=== PATIENT | male | born 1965 | race Caucasian/White ===

== ENCOUNTER → 2019-08-27 16:18 | Outpatient (BNVA) | payer MEDICAID, SELFPAY | PROVIDERS: Family Provider Family Medicine; Visit Provider Family Medicine | DX: E87.6 Hypokalemia (principal); I10 Essential (primary) hypertension; R10.31 Right lower quadrant pain; J44.9 Chronic obstructive pulmonary disease, unspecified; E04.1 Nontoxic single thyroid nodule | CPT/HCPCS: 80048 ==

== ENCOUNTER → 2019-09-02 12:42 | Outpatient (BNVA) | payer MEDICAID, SELFPAY | PROVIDERS: Family Provider Family Medicine; PCP Family Medicine; Visit Provider Otolaryngology | DX: E04.1 Nontoxic single thyroid nodule (principal); R13.10 Dysphagia, unspecified; F17.210 Nicotine dependence, cigarettes, uncomplicated | CPT/HCPCS: 99214 ==

== ENCOUNTER 2019-09-15 12:54 | Outpatient (CLI) | payer MEDICAID, SELFPAY ==
[2019-09-15] MEDS: iohexol 300 mg/mL 50 mL Btl PO (13:47)
--- NOTE | 2019-09-15 14:30 | CTR_ITS ---
PROCEDURE INFORMATION: Exam: CT Abdomen And Pelvis With Contrast Exam date and time: 09/15/2019 1:30 PM Age: 54 years old Clinical indication: Other: Right groin pain; Prior surgery; Surgery date: 6+ months; Surgery type: Appy, hernia mesh date of surgeries not provided TECHNIQUE: Imaging protocol: Computed tomography of the abdomen and pelvis with intravenous contrast. Total DLP: 1560.63 mGy-cm Radiation optimization: All CT scans at this facility use at least one of these dose optimization techniques: automated exposure control; mA and/or kV adjustment per patient size (includes targeted exams where dose is matched to clinical indication); or iterative reconstruction. Contrast material: OMNI 300; Contrast volume: 95 ml; Contrast route: IV; COMPARISON: CT abdomen pelvis w con* [id number] 07/31/2019 6:47 PM FINDINGS: Liver: Diffuse fatty infiltration of the liver. Gallbladder and bile ducts: Cholelithiasis. The bile ducts are normal. Pancreas: Normal. No ductal dilation. Spleen: Normal. No splenomegaly. Adrenals: Normal. No mass. Kidneys and ureters: Normal. No hydronephrosis. Stomach and bowel: Duodenal diverticulum. Appendix: The appendix is absent. Intraperitoneal space: Unremarkable. No free air. No significant fluid collection. Vasculature: Unremarkable. No abdominal aortic aneurysm. Lymph nodes: Unremarkable. No enlarged lymph nodes. Bladder: Unremarkable as visualized. Reproductive: Unremarkable as visualized. Bones/joints: Unremarkable. No acute fracture. Soft tissues: Unremarkable. CT/CT abdomen pelvis w con* [id number] IMPRESSION: 1. No acute findings in the abdomen or pelvis. 2. Cholelithiasis. 3. Fatty liver. Radiation Dose CTDIVOL = (mGy): DLP = 1560.63 (mGy-cm)
[2019-09-15] MEDS: iohexol 300 mg/mL 100 mL Btl IV (15:00)
== END 2019-09-15 12:55 | disposition home or self-care (01) ==
LOC: RAD 12:57
PROVIDERS: Family Provider Family Medicine; PCP Family Medicine; Visit Provider Surgery
DX: R10.31 Right lower quadrant pain (principal); K80.20 Calculus of gallbladder without cholecystitis without obstruction; K76.0 Fatty (change of) liver, not elsewhere classified
CPT/HCPCS: 74177

== ENCOUNTER → 2019-09-30 10:38 | Outpatient (BNVA) | payer MEDICAID, SELFPAY | PROVIDERS: Family Provider Family Medicine; PCP Family Medicine; Visit Provider Specialist | DX: I99.8 Other disorder of circulatory system (principal); F17.210 Nicotine dependence, cigarettes, uncomplicated; Z86.73 Personal history of transient ischemic attack (TIA), and cerebral infarction without residual deficits | CPT/HCPCS: 99214 ==

== ENCOUNTER → 2019-10-01 09:41 | Outpatient (BNVA) | payer MEDICAID, SELFPAY | PROVIDERS: Family Provider Family Medicine; PCP Family Medicine; Visit Provider Family Medicine | DX: E87.6 Hypokalemia (principal); I10 Essential (primary) hypertension; R10.31 Right lower quadrant pain; B35.1 Tinea unguium; R13.19 Other dysphagia; Z12.11 Encounter for screening for malignant neoplasm of colon; E04.1 Nontoxic single thyroid nodule; R60.0 Localized edema | CPT/HCPCS: 36415; 80048 ==

== ENCOUNTER → 2019-10-07 11:04 | Outpatient (BNVA) | payer MEDICAID, SELFPAY | PROVIDERS: Family Provider Family Medicine; PCP Family Medicine; Visit Provider Otolaryngology | DX: R13.19 Other dysphagia (principal); E04.1 Nontoxic single thyroid nodule; F17.210 Nicotine dependence, cigarettes, uncomplicated | CPT/HCPCS: 99214 ==

== ENCOUNTER 2019-10-09 06:50 | Day surgery (SDC) | payer MEDICAID, SELFPAY ==
[2019-10-08 14:45] VITALS: BMI 34.0
[2019-10-09] VITALS (8 sets, daily range): BP systolic 107–135; BP diastolic 64–104; PULSE 92–126; RESP 18–27; TEMP 36.2–36.9; O2SAT 89–95
[2019-10-09] MEDS: sodium chloride 0.9% 1,000 ML 30 ML IV (07:24)
--- NOTE | 2019-10-09 07:27 | ANES.PREANE2 ---
Pre-Anesthetic Assessment Pre-Anesthetic Assessment: Height/Weight: Height 1.75 m Weight 104.326 kg Temp Pulse Resp BP Pulse Ox 97.3 F L 92 18 133/91 95 10/09/19 07:03 10/09/19 07:03 10/09/19 07:03 10/09/19 07:03 10/09/19 07:03 Preop Diagnosis: Dysphasia Proposed Procedure: Operation Date: 10/09/19 08:20 Proposed Procedures p EGD with biopsy and poss dilation 13326 R13.10(Not Applicable) - Jonathan Hamm MD Last intake: Intake Last Liquid Date 10/09/19 Last Liquid Time 06:00 Last Solid Date 10/08/19 Last Solid Time 19:00 Social: Social History: Tobacco and No alcohol Exam: Pre-Anes Outpt Exam: alert, oriented x 3, clear to auscultation bilaterally and regular rate & rhythm Airway: Submandibular: WNL Cervical ROM: WNL MP: 1 Dentition: Other (very poor dentation) History/ROS: No significant history except as noted Pulmonary: Pulmonary: COPD and ELIAS CV/HEM: CV/HEM: HTN : : None reported Hepatic: Hepatic: None reported GI: GI: GERD (occ) Comments: dysphagia Metabolic: Metabolic: Hyperlipidemia Musc/skel: Musc/skel: Lower Back Pain and OA/DJD Neuropsych: Neuropsych: Anxiety, Depression and TIA (reports 2 episodes) Anesthetic Plan: ASA status: 3 Anesthesia: Anesthesia Evaluation and MAC Risk of > 500 ml blood loss (7ml/kg in children): No Meds/Allergies Current Medications: Current Medications Generic Name Dose Route Start Last Admin Trade Name Freq PRN Reason Stop Dose Admin Sodium Chloride 1,000 mls @ 30 ml s/hr 10/09/19 07:00 10/09/19 07:24 Sodium Chloride 0.9% IV 10/10/19 06:59 30 mls/hr .Q24H ASA Administration PFSH Anesthesia PFSH: Medical History Acute cerebrovascular accident Chest pain at rest COPD, mild Hypertension, essential Lumbar disc disease with radiculopathy Nocturia Seizure Stenosis, cervical spine Thoracic spine pain Thyroid nodule Surgical History H/O circumcision History of appendectomy Hx of inguinal hernia surgery right with mesh 2006 Family History Other Arthritis Diabetes Hypertension Denies family history of Anesthesia complication Bleeding disorder Social History Smoking and tobacco status: current every day smoker cigarettes Packs smoked per day: 2.5 Alcohol intake: former Household members: other Details: room mate Marital status: Single Current occupational status: disabled History of recent travel: No Current gender identity: Male Data Anesthesia Cardiac Studies: No Data to Display
--- NOTE | 2019-10-09 07:35 | W.PM.OPSUD ---
Surgery/Procedure H&P Update DATE OF PROCEDURE: October 09, 2019 DATE H&P PERFORMED: 10/07/19 H&P UPDATE INFORMATION: I have reviewed H&P completed within last 30 days and No changes to prior documentation PREOP DIAGNOSIS: Dysphasia PLANNED PROCEDURE: Operation Date: 10/09/19 08:20 Proposed Procedures p EGD with biopsy and poss dilation 24854 R13.10(Not Applicable) - Jonathan Hamm MD
--- NOTE | 2019-10-09 07:36 | P.OP_ITS ---
Operative Report Date of procedure: October 09, 2019 Pre-op Diagnosis: Dysphagia Post-op diagnosis: same Post-op Findings: Stricture cervical esophagus, distal esophageal erosion, gastric ulcer Procedure Done: EGD with dilation and biopsy of distal esophagus and gastric mucosa Pathology: Distal esophagus, gastric mucosa Surgeon: Jonathan Hamm Anesthesia: MAC Complications: None Findings: Small areas of ulceration gastric mucosa, circumferential erosion distal esophagus measuring less than 1 cm in greatest dimension. Condition: stable Disposition: PACU Procedure: The patient was taken to the operating room and under satisfactory general endotracheal anesthesia the gastroscope was introduced into the post cricoid area. A stricture was encountered. The scope was passed through the stricture the esophagus stomach and duodenum were examined the duodenal mucosa was normal several small ulcers were identified in the gastric mucosa 2 biopsies were taken. The distal esophageal mucosa demonstrated circumferential erosion greatest distance was approximately 1 cm. Biopsies were taken. Using a bougie the patient was dilated to a 57 [place]. Repeat examination revealed no perforation. The patient tolerated the procedure well and was allowed to awaken. He was taken to the recovery room where he was observed during the observation time postoperative care instructions and counseling including detailed written and verbal instructions were given to the patient. Once he met discharge criteria he was discharged in satisfactory and stable condition.
[2019-10-09] MEDS: citric acid-sodium citrate 30 mL UDC PO (07:46)
--- NOTE | 2019-10-09 08:13 | SUR.OPER ---
blood noted on lips when oral airway removed to intubate patient.
--- NOTE | 2019-10-09 08:13 | W.PM.OPSUD ---
Surgery/Procedure H&P Update DATE OF PROCEDURE: October 09, 2019 DATE H&P PERFORMED: 10/07/19 H&P UPDATE INFORMATION: I have reviewed H&P completed within last 30 days and No changes to prior documentation PREOP DIAGNOSIS: Dysphagia PLANNED PROCEDURE: Operation Date: 10/09/19 08:20 Proposed Procedures p EGD with biopsy and poss dilation 25490 R13.10(Not Applicable) - Jonathan Hamm MD
--- NOTE | 2019-10-09 08:29 | SUR.PHASEI ---
3692 PATIENT TO PACU AT THIS TIME. COUGH NOTED. RR UNLABORED. SPO2 95% ON SIMPLE MASK AT 8L.
--- NOTE | 2019-10-09 08:46 | SUR.PHASEI ---
0846 PATIENT CONTINUES TO HAVE A DRY, HACKY COUGH
--- NOTE | 2019-10-09 08:52 | SUR.PHASEI ---
0852 PATIENT CAN'T TOLERATE O2 VIA NC OR SIMPLE MASK.
--- NOTE | 2019-10-09 09:01 | SUR.PHASEI ---
0857 PATIENT TO OPS AT THIS TIME. PATIENT CONTINUE TO COUGH. SPO2 90% ON ROOM AIR. PATIENT NOT TOLERATING A MASK OR O2. DENIES PAIN. A/OX3.
[2019-10-09] MEDS: cetylpyridinium Lozenge 1 EACH MUCOUS MEM (09:21)
== END 2019-10-09 09:45 | disposition home or self-care (01) ==
PROVIDERS: Family Provider Family Medicine; PCP Family Medicine; Visit Provider Otolaryngology
PROC: 0DJ08ZZ Inspection of Upper Intestinal Tract, Via Natural or Artificial Opening Endoscopic (ICD-10-PCS; CPT 43235; principal; 2019-10-09 08:20)
DX: R13.10 Dysphagia, unspecified (principal); J44.9 Chronic obstructive pulmonary disease, unspecified; I10 Essential (primary) hypertension; Z86.73 Personal history of transient ischemic attack (TIA), and cerebral infarction without residual deficits; Z82.49 Family history of ischemic heart disease and other diseases of the circulatory system; Z83.3 Family history of diabetes mellitus; F17.210 Nicotine dependence, cigarettes, uncomplicated; E04.1 Nontoxic single thyroid nodule; E78.5 Hyperlipidemia, unspecified; K21.9 Gastro-esophageal reflux disease without esophagitis; M19.90 Unspecified osteoarthritis, unspecified site
CPT/HCPCS: 43239; 43450; 12345; 88305; J1100; J2001; J2250; J2405; J2704; J3535; J7030

== ENCOUNTER 2019-10-20 10:36 | Outpatient (CLI) | payer MEDICAID, SELFPAY ==
--- NOTE | 2019-10-20 11:00 | US_ITS ---
WS: [id number] THYROID ULTRASOUND REASON FOR EXAM: thyroid nodule TECHNIQUE: Grayscale and Doppler ultrasound examination of the thyroid gland. FINDINGS: RIGHT: Right thyroid gland measures 3.9 cm x 1.2 cm x 1.2 cm. Right thyroid volume equals 2.8 ccm3. Homogene ous. LEFT: Left thyroid gland measures 3.9 cm x 1.6 cm x 1.6 cm. Left thyroid volume equals 5.3 ccm3. In the low er aspects of the left lobe is a complex nodule which partially cystic and solid measures 1.31 x 0.80 x 0.95 cm. This lesion with a complex the is somewhat suspicious and consideration of biopsy is kermit mmended . Thyroid isthmus: 0.5 mm. US/US thyroid [id number] IMPRESSION: A complex nodule in the lower aspects of the left lobe this is well encapsulate d but is complex and consideration of biopsy recommended.
== END 2019-10-20 10:37 | disposition home or self-care (01) ==
LOC: RAD 10:39
PROVIDERS: Family Provider Family Medicine; PCP Family Medicine; Visit Provider Emergency Medicine
DX: E04.1 Nontoxic single thyroid nodule (principal)
CPT/HCPCS: 76536

== ENCOUNTER → 2019-10-24 09:05 | Outpatient (BNVA) | payer MEDICAID, SELFPAY | PROVIDERS: Family Provider Family Medicine; PCP Family Medicine; Visit Provider Otolaryngology | DX: R13.19 Other dysphagia (principal); E04.1 Nontoxic single thyroid nodule; F17.210 Nicotine dependence, cigarettes, uncomplicated | CPT/HCPCS: 99214 ==

== ENCOUNTER 2019-11-07 09:19 | Outpatient (CLI) | payer MEDICAID, SELFPAY ==
--- NOTE | 2019-11-07 10:00 | US_ITS ---
WS: [id number] INDICATION: Thyroid FNA TECHNIQUE: Ultrasound-guided thyroid nodule FNA FINDINGS: The procedure including risks benefits, locations were discussed with the patient who agree d to proceed. Using sterile technique patient was prepped and draped in usual sterile fashion. A time out was performed. After 1% lidocaine using ultrasound guidance 3 25-gauge passes were made into the complex cystic and solid left thyroid nodule with active aspiration. Pathology was present for slide preparation. No complications. Nodule decrease in size by approximately 30% with fluid aspiration. US/US biopsy thyroid [id number] IMPRESSION: Uncomplicated ultrasound-guided thyroid nodule FNA
== END 2019-11-07 09:20 | disposition home or self-care (01) ==
LOC: RAD 09:21
PROVIDERS: Family Provider Family Medicine; PCP Family Medicine; Visit Provider Otolaryngology
DX: E04.1 Nontoxic single thyroid nodule (principal)
CPT/HCPCS: 10005; 88173; 88305; J2001

== ENCOUNTER → 2019-11-11 13:01 | Outpatient (BNVA) | payer MEDICAID, SELFPAY | PROVIDERS: Family Provider Family Medicine; PCP Family Medicine; Visit Provider Otolaryngology | DX: R13.19 Other dysphagia (principal); E04.1 Nontoxic single thyroid nodule; F17.210 Nicotine dependence, cigarettes, uncomplicated | CPT/HCPCS: 99213; 99214 ==

== ENCOUNTER 2020-03-16 14:46 | Outpatient (CLI) | payer MEDICAID, SELFPAY ==
--- NOTE | 2020-03-16 15:00 | USCV_ITS ---
Clolin Jaramillo Age: 54 Gender: M : 1965 Exam Date: 03/16/2020 14:58 Ordering Phys: Apolinar Soliz DPM Technologist: Ginny Hammond Exam Location: [facility] – [place] Indication: PAD HISTORY: PT HAS SORE PAINFUL FEET AND LEGS PROCEDURES: Venous duplex imaging was performed in bilateral lower extremities. Bilaterally, the common femoral, superficial femoral, profunda femoral, popliteal, posterior tibial, greater saphenous veins, and the peroneal trunk were identified and interrogated in the standard fashion. These veins were found to be easily compressible with spontaneous blood flow. No evidence of insufficiency or thrombus noted. Serial compression, augmentation maneuvers, and spectral Doppler flow evaluation were performed. FINDINGS: No DVT seen in any vessel examined CONCLUSIONS No evidence of DVT in the above-mentioned identifiable veins. Dr Boris Stokes MD [facility] (Electronically Signed) Final Date: 18 March 2020 08:45 S
== END 2020-03-16 14:47 | disposition home or self-care (01) ==
LOC: RAD 14:49
PROVIDERS: Family Provider Family Medicine; PCP Family Medicine; Visit Provider Podiatrist Foot & Ankle Surgery
DX: I73.9 Peripheral vascular disease, unspecified (principal)
CPT/HCPCS: 93970

== ENCOUNTER 2020-03-18 14:58 | Outpatient (CLI) | payer MEDICAID, SELFPAY ==
--- NOTE | 2020-03-18 15:00 | USCV_ITS ---
Collin Jaramillo Age: 54 Gender: M : 1965 Exam Date: 03/18/2020 14:48 Ordering Phys: Apolinar Soliz DPM Technologist: Exam [place] [facility] [place] Indication: Claudication RIGHT LEFT Brachial 149.00 mmHg Brachial 130.00 mmHg Pressure (mmHg) Waveform Pressure (mmHg) Waveform 135.00 BACK GRINDER 140.00 140.00 DPA 137.00 0.94 Ankle/Brachial Index 0.94 135.00 Pre-Exercise Toe Pressure 131.00 0.91 Pre-Exercise Toe/Brachial Index 0.88 FINDINGS Borderline resting ABIs bilaterally Normal resting TBI's bilaterally Normal segmental pressures CONCLUSIONS No significant arterial obstruction, based on the above findings. Dr Boris Stokes MD [facility] (Electronically Signed) Final Date: 18 March 2020 17:32 S
== END 2020-03-18 14:59 | disposition home or self-care (01) ==
LOC: RAD 15:00
PROVIDERS: Family Provider Family Medicine; PCP Family Medicine; Visit Provider Podiatrist Foot & Ankle Surgery
DX: I73.9 Peripheral vascular disease, unspecified (principal)
CPT/HCPCS: 93922

== ENCOUNTER → 2020-04-27 16:06 | Outpatient (BNVA) | payer MEDICAID, SELFPAY | PROVIDERS: Family Provider Family Medicine; PCP Family Medicine; Visit Provider Nurse Practitioner Family | DX: J30.2 Other seasonal allergic rhinitis (principal); Z20.828 Contact with and (suspected) exposure to other viral communicable diseases | CPT/HCPCS: 87635 ==

== ENCOUNTER → 2020-07-26 16:44 | Outpatient (BNVA) | payer MEDICAID, SELFPAY | PROVIDERS: Family Provider Family Medicine; PCP Family Medicine; Visit Provider Family Medicine | DX: Z20.828 Contact with and (suspected) exposure to other viral communicable diseases (principal); I10 Essential (primary) hypertension; J44.9 Chronic obstructive pulmonary disease, unspecified; Z86.73 Personal history of transient ischemic attack (TIA), and cerebral infarction without residual deficits; K21.9 Gastro-esophageal reflux disease without esophagitis; J06.9 Acute upper respiratory infection, unspecified; Z12.11 Encounter for screening for malignant neoplasm of colon; R13.19 Other dysphagia | CPT/HCPCS: 80048; 87635 ==

== ENCOUNTER → 2021-03-10 09:25 | Outpatient (BNVA) | payer MEDICAID, SELFPAY | PROVIDERS: PCP Family Medicine; Visit Provider Family Medicine | DX: I10 Essential (primary) hypertension (principal); J44.9 Chronic obstructive pulmonary disease, unspecified; Z86.73 Personal history of transient ischemic attack (TIA), and cerebral infarction without residual deficits; J30.9 Allergic rhinitis, unspecified; K21.9 Gastro-esophageal reflux disease without esophagitis; E03.9 Hypothyroidism, unspecified | CPT/HCPCS: 80053; 80061; 83735; 84443; 85025 ==

== ENCOUNTER 2021-08-17 10:10 | Outpatient (CLI) | payer MEDICAID, SELFPAY ==
--- NOTE | 2021-08-17 10:15 | USCV_ITS ---
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 Dr Boris Stokes MD [facility] (Electronically Signed) Final Date: 17 August 2021 19:39 S
== END 2021-08-17 10:11 | disposition home or self-care (01) ==
PROVIDERS: PCP Family Medicine; Visit Provider Podiatrist Foot & Ankle Surgery
DX: R09.89 Other specified symptoms and signs involving the circulatory and respiratory systems (principal)
CPT/HCPCS: 93923

== ENCOUNTER → 2021-09-01 11:04 | Outpatient (BNVA) | payer MEDICAID, SELFPAY | PROVIDERS: PCP Family Medicine; Visit Provider Emergency Medicine | DX: Z20.822 Contact with and (suspected) exposure to COVID-19 (principal) | CPT/HCPCS: 87635 ==

== ENCOUNTER → 2021-10-11 11:22 | Outpatient (BNVA) | payer MEDICAID, SELFPAY | PROVIDERS: PCP Family Medicine; Visit Provider Family Medicine | DX: M54.2 Cervicalgia (principal); M54.9 Dorsalgia, unspecified; G89.29 Other chronic pain | CPT/HCPCS: 72040; 72100 ==

== ENCOUNTER → 2021-12-01 09:19 | Outpatient (BNVA) | payer MEDICAID, SELFPAY | PROVIDERS: PCP Family Medicine; Visit Provider Podiatrist Foot & Ankle Surgery | DX: L60.0 Ingrowing nail (principal); L60.3 Nail dystrophy; Z98.890 Other specified postprocedural states; F17.210 Nicotine dependence, cigarettes, uncomplicated | CPT/HCPCS: 99213 ==

== ENCOUNTER → 2022-04-10 10:08 | Outpatient (BNVA) | payer MEDICAID, SELFPAY | PROVIDERS: PCP Family Medicine; Visit Provider Family Medicine | DX: K21.9 Gastro-esophageal reflux disease without esophagitis (principal); I10 Essential (primary) hypertension; J44.9 Chronic obstructive pulmonary disease, unspecified; J30.9 Allergic rhinitis, unspecified; J30.1 Allergic rhinitis due to pollen; E87.6 Hypokalemia; Z13.220 Encounter for screening for lipoid disorders; Z13.6 Encounter for screening for cardiovascular disorders; Z86.73 Personal history of transient ischemic attack (TIA), and cerebral infarction without residual deficits | CPT/HCPCS: 80053; 80061 ==

== ENCOUNTER → 2022-04-13 08:31 | Outpatient (BNVA) | payer MEDICAID, SELFPAY | PROVIDERS: PCP Family Medicine; Visit Provider Podiatrist Foot & Ankle Surgery | DX: L60.3 Nail dystrophy (principal) | CPT/HCPCS: 99213 ==

== ENCOUNTER 2023-01-14 13:29 | Emergency (ER) | payer MEDICAID, SELFPAY ==
--- NOTE | 2023-01-14 13:30 | ECG_ITS ---
[facility] Test Date: 2023-01-14 Pat Name: Collin Jaramillo Department: Room: Gender: Male Head Of Operation And Logistics: : 1965 Requested By: Abdullahi Maxwell Order Number: [id number] Toni MD: Gallito Steward M.D. Measurements Intervals [place] Rate: 109 P: 62 OK: 140 QRS: 79 QRSD: 85 T: 78 QT: 294 QTc: 397 Interpretive Statements SINUS TACHYCARDIA Compared to ECG 07/10/2019 14:13:42 Sinus rhythm no longer present Electronically Signed On 01-15-2023 23:32:18 CDT by Gallito Steward M.D. [id number]
--- NOTE | 2023-01-14 13:31 | XRR_ITS ---
PROCEDURE INFORMATION: Exam: XR Chest Exam date and time: 01/14/2023 1:58 PM Age: 57 years old Clinical indication: Shortness of breath; Additional info: SOB, sent from clinic to er for low oxygen TECHNIQUE: Imaging protocol: Radiologic exam of the chest. Views: 1 view. COMPARISON: CR XR chest 1V [id number] 07/10/2019 2:04 PM FINDINGS: Lungs: Unremarkable. No consolidation. Pleural spaces: Unremarkable. No pleural effusion. No pneumothorax. Heart/Mediastinum: Unremarkable. No cardiomegaly. Bones/joints: Unremarkable for age. XR/XR chest 1V portable [id number] IMPRESSION: Negative chest exam.
[2023-01-14 13:41] VITALS: BP 136/73; PULSE 116; RESP 22; TEMP 37.1; O2SAT 95; BMI 33.6
[2023-01-14 14:53] LABS: Basophils % 0.8 %; Hematocrit 41.9 % (42.0-52.0); Hemoglobin 14.1 g/dL (11.7-16.6); Lymphocytes # 0.5 10^3/uL (0.8-4.8); Lymphocytes % 13.3 %; Mean Corpuscular HGB Conc 33.7 g/dL (30.0-36.0); Mean Corpuscular Hemoglobin 29.9 pg (28.0-34.0); Mean Corpuscular Volume 88.8 fl (80-94); Mean Platelet Volume 8.5 fL (7.4-10.4); Monocytes # 0.4 10^3/uL (0.2-0.9); Monocytes % 9.7 %; Neutrophils # 2.73 10^3/uL (1.8-7.7); Neutrophils % 75.6 %; Nucleated Red Blood Cells % 0 %; Platelet Count 139 10^3/cmm (130-400); Red Blood Count 4.72 10^6/uL (4.1-5.3); Red Cell Distribution Width 13.8 % (12.1-15.1); White Blood Count 3.6 10^3/uL (4.0-10.0)
[2023-01-14 15:04] LABS: INR 1.07 (0.8-1.2)
--- NOTE | 2023-01-14 15:12 | ED_ITS ---
HPI - SOB/Dyspnea General: Chief Complaint: Shortness of Breath/Dyspnea Stated Complaint: clinic sent for low O2, sob Time Seen by Provider: 01/14/23 14:07 Source: patient Mode of arrival: ambulatory Limitations: no limitations History of Present Illness: HPI Narrative: 57-year-old male has a history of COPD states over the last 2 days he is had a lot of sinus pressure a lot of nasal congestion he states he had a slight cough today as he has had increased wheezing and shortness of breath using albuterol inhaler states he has had minimal improvement with his wheezing. He denies any fevers denies any pain denies any worsening improving factors. Associated symptoms: Deny abdominal pain, chest pain, fever(s), nausea or vomiting Review of Systems Const: Denies: fever(s), chills, body aches or change in appetite Eyes: Denies: eye discomfort ENMT: Reports: nasal congestion and sinus pain; Denies: throat pain or dental pain Card: Denies: chest pain Resp: Reports: dyspnea, non-productive cough and wheezing GI: Denies: abdominal pain, nausea, vomiting or diarrhea Musc: Denies: neck pain or back pain Skin/Breast: Denies: rash Neuro: Reports: headache(s) PFSH ED PFSH: Medical History Chest pain at rest COPD, mild GERD (gastroesophageal reflux disease) History of CVA (cerebrovascular accident) Hypertension, essential HCTZ 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 Lumbar disc disease with radiculopathy Nocturia Psychiatric care Seizure Stenosis, cervical spine Thoracic spine pain Thyroid nodule Surgical History H/O circumcision History of appendectomy Hx of inguinal hernia surgery right with mesh 2006 Family History Other Arthritis Diabetes Hypertension Denies family history of Anesthesia complication Bleeding disorder Social History Smoking and tobacco status: current every day smoker cigarettes Packs smoked per day: 2.5 Alcohol intake: former Substance/Drug Use: never Household members: other Details: room mate Marital status: Single Current occupational status: disabled Current gender identity: Male Physical Exam Const: COMMON NORMALS: patient oriented x3 HENMT: COMMON NORMALS: normocephalic and atraumatic HEAD & SCALP: normocephalic and atraumatic Eye: COMMON NORMALS: conjunctivae normal CONJUNCTIVA: Yes conjunctivae normal Neck/C-Spine: COMMON NORMALS: full ROM and supple Chest: COMMONS NORMALS: normal inspection of the chest and normal palpation of entire chest wall Resp: COMMON NORMALS: normal respiratory effort, No retractions and No use of accessory muscles AUSCULTATION: wheezes Cardio: COMMON NORMALS: regular rhythm and No murmurs present (Cardio) RATE: tachycardic RHYTHM: regular rhythm GI: COMMON NORMALS: Normal to inspection, nondistended, normoactive bowel sounds present, Soft to palpation, non-tender and no masses PALPATION: Yes Soft to palpation Extremity: COMMON NORMALS: normal to inspection and full ROM Neuro: COMMON NORMALS: patient oriented x3, moves all extremities and no focal motor deficits Psych: COMMON NORMALS: mental status grossly normal, Normal thought process present and cooperative THOUGHT PROCESS: Normal thought process present Skin: COMMON NORMALS: no rashes or lesions noted and no wounds GENERAL SKIN EXAM: no rashes or lesions noted Course Vital Signs: Vital signs: Vital Signs Temperature 98.7 F 01/14/23 13:41 Pulse Rate 107 H 01/14/23 16:00 Respiratory Rate 20 H 01/14/23 16:00 Blood Pressure 136/77 01/14/23 16:00 Pulse Oximetry 93 01/14/23 16:00 Oxygen Delivery Me thod Room Air 01/14/23 16:00 MDM - SOB/Dyspnea Medical Decision Making Patient presents for COPD exacerbation along with a likely sinusitis he feels much improved after breathing treatment he has been in no distress no signs of pneumonia we will give him 5 days of steroids along with doxycycline he is to use his albuterol inhaler at home he has no signs of pulmonary embolism he is stable for discharge he is to follow-up with PCP and return if worsening he understands agrees to plan. Medical Records I reviewed the patient's medical records. Lab Data I reviewed the patient's lab results. 01/14/23 14:46 01/14/23 14:46 Labs/Radiology: Radiology Impressions Chest X-Ray 01/14/23 13:31 IMPRESSION: Negative chest exam. Laboratory Results WBC 3.6 10^3/uL (4.0-10.0) L 01/14/23 14:46 RBC 4.72 10^6/uL (4.1-5.3) 01/14/23 14:46 Hgb 14.1 g/dL (11.7-16.6) 01/14/23 14:46 Hct 41.9 % (42.0-52.0) L 01/14/23 14:46 MCV 88.8 fl (80-94) 01/14/23 14:46 MCH 29.9 pg (28.0-34.0) 01/14/23 14:46 MCHC 33.7 g/dL (30.0-36.0) 01/14/23 14:46 RDW 13.8 % (12.1-15.1) 01/14/23 14:46 Plt Count 139 10^3/cmm (130-400) 01/14/23 14:46 MPV 8.5 fL (7.4-10.4) 01/14/23 14:46 Neut % (Auto) 75.6 % 01/14/23 14:46 Lymph % (Auto) 13.3 % 01/14/23 14:46 [place] % (Auto) 9.7 % 01/14/23 14:46 Eos % (Auto) 0.0 % 01/14/23 14:46 Baso % (Auto) 0.8 % 01/14/23 14:46 Neut # (Auto) 2.73 10^3/uL (1.8-7.7) 01/14/23 14:46 Lymph # (Auto) 0.5 10^3/uL (0.8-4.8) L 01/14/23 14:46 [place] # (Auto) 0.4 10^3/uL (0.2-0.9) 01/14/23 14:46 Eos # (Auto) 0.0 10^3/uL (0.0-0.8) 01/14/23 14:46 Baso # (Auto) 0.0 10^3/uL (0.0-0.1) 01/14/23 14:46 Nucleated RBC % (auto) 0 % 01/14/23 14:46 Nucleated RBCs # 0.0 /100WBC 01/14/23 14:46 PT 14.20 SECONDS (12.1-14.9) 01/14/23 14:46 INR 1.07 (0.8-1.2) 01/14/23 14:46 Sodium 126 mmol/L (136-145) L 01/14/23 14:46 Potassium 4.3 mmol/L (3.5-5.1) 01/14/23 14:46 Chloride 92 mmol/L (98-107) L 01/14/23 14:46 Carbon Dioxide 26 mmol/L (22-29) 01/14/23 14:46 Anion Gap 12.3 (5-19) 01/14/23 14:46 BUN 10 mg/dL (6-20) 01/14/23 14:46 Creatinine 0.8 mg/dL (0.7-1.2) 01/14/23 14:46 GFR Calculation 99.3 mL/min (90-130) 01/14/23 14:46 Glucose 91 mg/dL (65-115) 01/14/23 14:46 Calculated Osmolality 261 mOsm/kg (285-295) L 01/14/23 14:46 Calcium 9.1 mg/dL (8.5-10.5) 01/14/23 14:46 Total Bilirubin 2.1 mg/dL (0.15-1.2) H 01/14/23 14:46 AST 32 U/L (0-40) 01/14/23 14:46 ALT 29 U/L (0-41) 01/14/23 14:46 Alkaline Phosphatase 94 U/L (40-130) 01/14/23 14:46 NT-Pro-B Natriuret Pep 103 pg/mL (0-125) 01/14/23 14:46 Total Protein 6.9 g/dL (6.6-8.7) 01/14/23 14:46 Albumin 3.9 g/dL (3.5-5.2) 01/14/23 14:46 Globulin 3.0 g/dL (1.3-4.6) 01/14/23 14:46 EKG Data EKG 1: I personally reviewed and interpreted this EKG as follows: EKG Interpretation Date: 01/14/23 EKG interpretation time: 15:17 Interpretation: sinus tach hr [address] or t wave abnormalities qrs 85 qtc 358 Discharge Plan Discharge Patient Disposition: Home Clinical Impression: Acute exacerbation of chronic obstructive airways disease, Sinusitis Condition: Stable Prescriptions: New prednisone 50 mg tablet 50 mg PO DAILY Qty: 5 0RF doxycycline hyclate 100 mg tablet 100 mg PO BID 7 Days Qty: 14 0RF No Action atorvastatin 80 mg tablet 80 mg PO DAILY 90 Days Qty: 90 3RF omeprazole 20 mg capsule,delayed release(DR/EC) See Rx Instructions .ROUTE .COMPLEX 90 Days Qty: 90 1RF Dose Instruction: TAKE ONE CAPSULE BY MOUTH DAILY Rx Instructions: TAKE ONE CAPSULE BY MOUTH DAILY metoprolol succinate 25 mg tablet extended release 24 hr 25 mg PO DAILY 90 Days Qty: 90 1RF Combivent Respimat 20-100 mcg/actuation mist 1 puff INHALATION QID PRN (Reason: SOB) 30 Days Qty: 4 5RF hydrochlorothiazide 25 mg tablet 25 mg PO DAILY PRN (Reason: swelling) 90 Days Qty: 30 1RF fluticasone propionate [Flonase Allergy Relief] 50 mcg/actuation s pray,suspension 1 spray INTRANASAL .COMPLEX Qty: 16 5RF Rx Instructions: 1 spray intranasal daily; cyclobenzaprine 5 mg tablet 10 mg PO BID MDD 4 tabs PRN (Reason: muscle spasm) Qty: 180 1RF Rx Instructions: 1 or 2 tabs as needed Symbicort 160-4.5 mcg/actuation HFA aerosol inhaler 2 puff INHALATION BID 30 Days Qty: 10.2 5RF clotrimazole 1 % cream 1 applic topical TID Qty: 45 3RF Discharge Orders: Discharge ED (Routine); Ordered 01/14/23 Ordered By: Abdullahi Maxwell Referrals: Jerica Yip MD [Primary Care Provider] - 1-3 days Discharge Diet: Advance as tolerated Discharge Activity: Resume usual activity Patient Instructions: Sinusitis (ED), COPD (Chronic Obstructive Pulmonary Disease) (ED) Coding Level of Care Code ED Agricultural Extension Specialist for Julia Alaniz
--- NOTE | 2023-01-14 15:12 | PC.NURSE ---
PT PLACED ON CONTINUOUS SPO2, NIBP, AND CM.
[2023-01-14 15:22] LABS: Alanine Aminotransferase 29 U/L (0-41); Albumin Level 3.9 g/dL (3.5-5.2); Alkaline Phosphatase 94 U/L (40-130); Anion Gap 12.3 (5-19); Aspartate Amino Transferase 32 U/L (0-40); Blood Urea Nitrogen 10 mg/dL (6-20); Calcium 9.1 mg/dL (8.5-10.5); Carbon Dioxide 26 mmol/L (22-29); Chloride 92 mmol/L (98-107); Glomerular Filtration Rate 99.3 mL/min (90-130); Glucose 91 mg/dL (65-115); NT Pro B Type Natriuretic Pept 103 pg/mL (0-125); Osmolality Calculated 261 mOsm/kg (285-295); Potassium 4.3 mmol/L (3.5-5.1); Sodium 126 mmol/L (136-145); Total Bilirubin 2.1 mg/dL (0.15-1.2); Total Protein 6.9 g/dL (6.6-8.7)
[2023-01-14] MEDS: albuterol 2.5 mg/3 mL Neb INHALATION (15:34)
[2023-01-14] MEDS: ipratropium 0.5 mg/2.5 mL Neb INHALATION (15:34)
[2023-01-14 15:38] VITALS: PULSE 113; RESP 22; O2SAT 94
[2023-01-14 15:47] VITALS: PULSE 110
[2023-01-14 16:00] VITALS: BP 136/77; PULSE 107; RESP 20; O2SAT 93
[2023-01-14] MEDS: doxycycline 100 mg Tablet PO (16:20)
[2023-01-14] MEDS: ketorolac 30 mg/mL INJ 15 MG IVP (16:23)
[2023-01-14] MEDS: dexamethasone 10 mg/mL INJ IVP (16:24)
== END 2023-01-14 16:39 | disposition home or self-care (01) ==
PROVIDERS: Emergency Provider Emergency Medicine; PCP Family Medicine
DX: J44.1 Chronic obstructive pulmonary disease with (acute) exacerbation (principal); J32.9 Chronic sinusitis, unspecified; F17.210 Nicotine dependence, cigarettes, uncomplicated; Z86.73 Personal history of transient ischemic attack (TIA), and cerebral infarction without residual deficits; I10 Essential (primary) hypertension; Z20.822 Contact with and (suspected) exposure to COVID-19
CPT/HCPCS: 36415; 71045; 80053; 83880; 85025; 85610; 87400; 87426; 93005; 94640; 96374; 96375; 99285; J1100; J1885; J7613; J7644

== ENCOUNTER → 2023-02-13 13:00 | Outpatient (BNVA) | payer MEDICAID, SELFPAY | PROVIDERS: PCP Family Medicine; Visit Provider Dermatology | DX: L57.0 Actinic keratosis (principal); D22.5 Melanocytic nevi of trunk; L81.4 Other melanin hyperpigmentation; L57.8 Other skin changes due to chronic exposure to nonionizing radiation; D18.01 Hemangioma of skin and subcutaneous tissue | CPT/HCPCS: 17004; 99213 ==

== ENCOUNTER → 2023-04-02 08:42 | Outpatient (BNVA) | payer MEDICAID, SELFPAY | PROVIDERS: PCP Family Medicine; Visit Provider Family Medicine | DX: I10 Essential (primary) hypertension (principal); Z86.73 Personal history of transient ischemic attack (TIA), and cerebral infarction without residual deficits; J44.9 Chronic obstructive pulmonary disease, unspecified; M54.2 Cervicalgia; G89.29 Other chronic pain; M54.9 Dorsalgia, unspecified; J30.9 Allergic rhinitis, unspecified; K21.9 Gastro-esophageal reflux disease without esophagitis; E78.1 Pure hyperglyceridemia; J30.1 Allergic rhinitis due to pollen; R60.0 Localized edema; F17.200 Nicotine dependence, unspecified, uncomplicated; M94.0 Chondrocostal junction syndrome [Tietze] | CPT/HCPCS: 80048; 80061 ==

== ENCOUNTER → 2023-08-09 10:31 | Outpatient (BNVA) | payer MEDICAID, SELFPAY | PROVIDERS: PCP Family Medicine; Visit Provider Nurse Practitioner Family | DX: L57.0 Actinic keratosis (principal); L81.4 Other melanin hyperpigmentation; L57.8 Other skin changes due to chronic exposure to nonionizing radiation; L82.1 Other seborrheic keratosis; L82.0 Inflamed seborrheic keratosis | CPT/HCPCS: 17000; 17110; 99213 ==

== ENCOUNTER → 2023-10-31 14:00 | Outpatient (BNVA) | payer MEDICAID, SELFPAY | PROVIDERS: PCP Family Medicine; Visit Provider Nurse Practitioner Family | DX: L57.8 Other skin changes due to chronic exposure to nonionizing radiation (principal); L81.4 Other melanin hyperpigmentation; L82.1 Other seborrheic keratosis; D22.62 Melanocytic nevi of left upper limb, including shoulder; L57.0 Actinic keratosis | CPT/HCPCS: 17000; 99213 ==

== ENCOUNTER → 2024-04-08 13:55 | Outpatient (BNVA) | payer MEDICAID, SELFPAY | PROVIDERS: PCP Family Medicine; Visit Provider Family Medicine | DX: I10 Essential (primary) hypertension (principal); E04.1 Nontoxic single thyroid nodule; J44.9 Chronic obstructive pulmonary disease, unspecified | CPT/HCPCS: 80053; 80061; 83880; 84443; 85025 ==

== ENCOUNTER 2024-08-23 09:13 | Emergency (ER) | payer MEDICAID, SELFPAY ==
[2024-08-23 09:16] VITALS: BP 128/81; PULSE 97; RESP 20; TEMP 36.5; O2SAT 94
--- NOTE | 2024-08-23 09:28 | XRR_ITS ---
PROCEDURE INFORMATION: Exam: XR Left Wrist Exam date and time: 08/23/2024 9:43 AM Age: 59 years old Clinical indication: Injury or trauma; Fall; Blunt trauma (contusions or hematomas); Wrist; Left TECHNIQUE: Imaging protocol: Radiologic exam of the left wrist. Views: 3 or more views. COMPARISON: No relevant prior studies available. FINDINGS: Bones/joints: Normal. Soft tissues: Normal. XR/XR wrist LT min 3V* [id number] IMPRESSION: No acute findings.
--- NOTE | 2024-08-23 09:28 | XRR_ITS ---
PROCEDURE INFORMATION: Exam: XR Left Elbow Exam date and time: 08/23/2024 9:45 AM Age: 59 years old Clinical indication: Injury or trauma; Fall; Blunt trauma (contusions or hematomas); Elbow; Left TECHNIQUE: Imaging protocol: Radiologic exam of the left elbow. Views: 3 or more views. COMPARISON: CR (UP EXM, ) 08/23/2024 9:45 AM FINDINGS: Bones/joints: Normal. Soft tissues: Normal. XR/XR elbow LT min 3V* [id number] IMPRESSION: No acute findings.
--- NOTE | 2024-08-23 09:28 | XRR_ITS ---
PROCEDURE INFORMATION: Exam: XR Left Humerus Exam date and time: 08/23/2024 9:45 AM Age: 59 years old Clinical indication: Injury or trauma; Fall; Blunt trauma (contusions or hematomas); Arm, upper; Left TECHNIQUE: Imaging protocol: Radiologic exam of the left humerus. Views: 2 or more views. COMPARISON: CR (UP EXM, ) 08/23/2024 9:45 AM FINDINGS: Bones/joints: Normal. Soft tissues: Normal. XR/[place] [id number] IMPRESSION: No acute findings.
--- NOTE | 2024-08-23 09:28 | XRR_ITS ---
PROCEDURE INFORMATION: Exam: XR Left Knee Exam date and time: 08/23/2024 9:50 AM Age: 59 years old Clinical indication: Injury or trauma; Fall; Blunt trauma; Knee; Left TECHNIQUE: Imaging protocol: Radiologic exam of the left knee. Views: 3 views. COMPARISON: No relevant prior studies available. FINDINGS: Bones/joints: Normal. Soft tissues: Normal. XR/XR knee LT 3V* [id number] IMPRESSION: No acute findings.
--- NOTE | 2024-08-23 09:29 | XRR_ITS ---
PROCEDURE INFORMATION: Exam: XR Chest Exam date and time: 08/23/2024 9:41 AM Age: 59 years old Clinical indication: Cough and dyspnea; Additional info: Dyspnea/cough TECHNIQUE: Imaging protocol: Radiologic exam of the chest. Views: 1 view. COMPARISON: CR XR chest 1V portable [id number] 01/14/2023 1:58 PM FINDINGS: Lungs: Unremarkable. No consolidation or mass. Pleural spaces: Unremarkable. No pleural effusion. No pneumothorax. Heart/Mediastinum: Unremarkable. No cardiomegaly. Bones/joints: Unremarkable. XR/XR chest 1V portable [id number] IMPRESSION: No acute findings.
--- NOTE | 2024-08-23 09:49 | ED_ITS ---
HPI - Fall General: Chief Complaint: Fall Stated Complaint: left arm injury Time Seen by Provider: 08/23/24 09:21 History of Present Illness: 59-year-old male complains of pain on th e left side left arm elbow wrist shoulder left ribs and left knee after he fell while trying to step over a gate. Did not strike his head did not lose consciousness. I told the nurse he takes a blood thinner however reviewing his medicine list there is none on his list talking to him he is confusing his blood pressure medications with blood thinners. Pharmacy search there are no oral anticoagulants that he has been prescribed. Associated symptoms-after fall: Denies abdominal pain, chest pain or neck pain Related Data Home Medications Medication Instructions Recorded Confirmed fluoxetine 20 mg capsule 20 mg PO DAILY 08/23/24 08/23/24 Previous Rx's Medication Instructions Recorded atorvastatin 80 mg tablet 80 mg PO DAILY 90 days #90 tabs 11/07/23 benzocaine 20 %-menthol 0.26 1 ea mucous membrane TID PRN pain 11/07/23 %-zinc chloride 0.15 % mucosal gel #11.9 grams (Orajel 3X Toothache-Gum) budesonide-formoterol HFA 160 2 puff inhalation BID 30 days 04/08/24 mcg-4.5 mcg/actuation aerosol #10.2 grams inhaler (Symbicort) fluticasone propionate 50 1 spray intranasal .COMPLEX #16 04/08/24 mcg/actuation nasal grams spray,suspension (Flonase Allergy Relief) hydrochlorothiazide 25 mg tablet 25 mg PO DAILY swelling 90 days 04/08/24 #90 tabs ipratropium 20 mcg-albuterol 100 1 puff inhalation QID PRN SOB 30 04/08/24 mcg/actuation mist for inhalation days #4 grams (Combivent Respimat) metoprolol succinate 25 mg 25 mg PO DAILY 90 days #90 tabs 04/08/24 tablet,extended release 24 hr omeprazole 20 mg capsule,delayed 20 mg PO DAILY 90 days #90 caps 04/08/24 release diclofenac sodium 75 mg 75 mg PO Q12H PRN pain #20 tabs 08/23/24 tablet,delayed release Allergies Allergy/AdvReac Type Severity Reaction Status Date / Time No Known Allergies Allergy Verified 04/08/24 13:03 Review of Systems Const: Denies: fever(s) or chills Card: Denies: chest pain Resp: Denies: dyspnea GI: Denies: abdominal pain : Denies: dysuria, urinary frequency or urinary urgency Musc: Denies: neck pain or back pain Skin/Breast: Denies: rash PFSH ED PFSH: Medical History Prolonged grief reaction Psychiatric care GERD (gastroesophageal reflux disease) History of CVA (cerebrovascular accident) Thyroid nodule Chest pain at rest Seizure Thoracic spine pain Lumbar disc disease with radiculopathy COPD, mild Nocturia Stenosis, cervical spine Hypertension, essential HCTZ 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 Surgical History H/O circumcision Hx of inguinal hernia surgery right with mesh 2007 History of appendectomy Family History Other Arthritis Diabetes Hypertension Denies family history of Anesthesia complication Bleeding disorder Social History Smoking and tobacco/nicotine status: current every day tobacco/nicotine user cigarettes Packs smoked per day: 2.5 Alcohol intake: former Substance/Drug Use: never Household members: other Details: room mate Marital status: Single Current occupational status: disabled Current gender identity: Male Physical Exam Const: GENERAL APPEARANCE: cooperative ORIENTATION/CONSCIOUSNESS: Yes awake, Yes oriented to person, Yes oriented to place and Yes oriented to time HENMT: COMMON NORMALS: normocephalic, atraumatic and hearing grossly normal bilaterally HEAD & SCALP: normocephalic and atraumatic Resp: COMMON NORMALS: normal respiratory effort, No retractions, No use of accessory muscles and clear to auscultation bilaterally AUSCULTATION: clear to auscultation bilaterally Cardio: COMMON NORMALS: regular rate, regular rhythm and No murmurs present (Cardio) RATE: regular rate RHYTHM: regular rhythm GI: COMMON NORMALS: Soft to palpation and No hepatosplenomegaly present AUSCULTATION: Yes normoactive bowel sounds PALPATION: Yes Soft to palpation, No Tenderness to palpation present (GI), No Guarding due to palpation present ( GI) and Yes No hepatosplenomegaly present Extremity: OTHER: Patient has abrasion on the left hand between the second and third digits also abrasion overlying the left patella. He spontaneously moves his left leg at the hip and knee. He also spontaneously moves and AB duct the shoulder he is protecting his elbow and wrist. Neurovascularly intact. Neuro: SENSORIUM/ORIENTATION: Yes oriented to person, Yes oriented to place and Yes oriented to time Skin: COMMON NORMALS: no rashes or lesions noted GENERAL SKIN EXAM: no rashes or lesions noted Course Vital Signs: Vital signs: Vital Signs Temperature 97.7 F 08/23/24 09:16 Pulse Rate 97 08/23/24 09:16 Respiratory Rate 20 H 08/23/24 09:16 Blood Pressure 128/81 08/23/24 09:16 Pulse Oximetry 94 08/23/24 09:16 MDM - Fall Medical Decision Making No acute fractures. Suspect patient has sprained his left shoulder he can AB duct pretty well opaque he has a major rotator cuff injury. Will place him in an arm sling use anti-inflammatories and will discharge patient home have him follow-up with his primary care doctor if persist he may need further evaluation of the shoulder. Medical Records I reviewed the patient's medical records. Lab Data I reviewed the patient's lab results. Radiology Impressions Elbow X-Ray 08/23/24 09:28 IMPRESSION: No acute findings. Humerus X-Ray 08/23/24 09:28 IMPRESSION: No acute findings. Knee X-Ray 08/23/24 09:28 IMPRESSION: No acute findings. Wrist X-Ray 08/23/24 09:28 IMPRESSION: No acute findings. Chest X-Ray 08/23/24 09:29 IMPRESSION: No acute findings. All radiology interpretation(s) finalized by discharge Discharge Plan Discharge Patient Disposition: Home Clinical Impression: Sprain of left shoulder, Fall, Abrasion of knee, left Condition: Stable Prescriptions: New diclofenac sodium 75 mg tablet,delayed release (DR/EC) 75 mg PO Q12H PRN (Reason: pain) Qty: 20 0RF Discontinued ibuprofen 200 mg tablet 200 mg PO Q6H PRN (Reason: Pain) Rx Instructions: TAKE ONE TABLET BY MOUTH EVERY 6 HOURS NEEDED FOR PAIN No Action atorvastatin 80 mg tablet 80 mg PO DAILY 90 Days Qty: 90 3RF Orajel 3X Toothache-Gum 20-0.26-0.15 % gel 1 ea mucous membrane TID PRN (Reason: pain) Qty: 11.9 5RF Symbicort 160-4.5 mcg/actuation HFA aerosol inhaler 2 puff INHALATION BID 30 Days Qty: 10.2 6RF fluticasone propionate [Flonase Allergy Relief] 50 mcg/actuation spray, suspension 1 spray INTRANASAL .COMPLEX Qty: 16 6RF Rx Instructions: 1 spray intranasal daily; hydrochlorothiazide 25 mg tablet 25 mg PO DAILY 90 Days Qty: 90 2RF Combivent Respimat 20-100 mcg/actuation mist 1 puff INHALATION QID PRN (Reason: SOB) 30 Days Qty: 4 6RF metoprolol succinate 25 mg tablet extended release 24 hr 25 mg PO DAILY 90 Days Qty: 90 2RF omeprazole 20 mg capsule,delayed release(DR/EC) 20 mg PO DAILY 90 Days Qty: 90 2RF fluoxetine 20 mg capsule 20 mg PO DAILY Rx Instructions: TAKE ONE CAPSULE BY MOUTH EVERY DAY Discharge Orders: Discharge ED (Routine); Ordered 08/23/24 Ordered By: Cory Elaine Referrals: Jerica Yip MD [Primary Care Provider] - Discharge Diet: Usual diet Discharge Activity: Resume usual activity Patient Instructions: Opioid Safety, Pain Management Activity Restrictions/Additional Instructions: Thank you for choosing [facility] for your healthcare needs today. It is very important that you follow up as instructed or that you return to the Emergency Department should you have concerns or if your condition changes or worsens in any way. You were seen in the emergency room with complaints of shoulder and knee pain after a fall. X-rays did not show any acute fractures suspect you may have sprained the shoulder we will give you a shoulder sling and use diclofenac as needed and follow-up with your primary care doctor. Coding Level of Care Code ED [place] Attendant for Julia Alaniz
== END 2024-08-23 11:21 | disposition home or self-care (01) ==
PROVIDERS: Emergency Provider Family Medicine; PCP Family Medicine
DX: S43.402A Unspecified sprain of left shoulder joint, initial encounter (principal); S80.212A Abrasion, left knee, initial encounter; W19.XXXA Unspecified fall, initial encounter; F17.210 Nicotine dependence, cigarettes, uncomplicated; J44.9 Chronic obstructive pulmonary disease, unspecified; I10 Essential (primary) hypertension; Z86.73 Personal history of transient ischemic attack (TIA), and cerebral infarction without residual deficits
CPT/HCPCS: 71045; 73060; 73080; 73110; 73562; 99284

== ENCOUNTER → 2024-11-26 10:51 | Outpatient (BNVA) | payer MEDICAID, SELFPAY | PROVIDERS: PCP Family Medicine; Visit Provider Nurse Practitioner Family | DX: L21.8 Other seborrheic dermatitis (principal); L72.0 Epidermal cyst; L57.8 Other skin changes due to chronic exposure to nonionizing radiation; L27.0 Generalized skin eruption due to drugs and medicaments taken internally; X32.XXXA Exposure to sunlight, initial encounter; L81.4 Other melanin hyperpigmentation | CPT/HCPCS: 17000; 99213 ==

== ENCOUNTER → 2025-03-30 13:50 | Outpatient (BNVA) | payer MEDICAID, SELFPAY | PROVIDERS: PCP Family Medicine; Visit Provider Family Medicine | DX: I10 Essential (primary) hypertension (principal); E78.1 Pure hyperglyceridemia; E04.1 Nontoxic single thyroid nodule; J44.9 Chronic obstructive pulmonary disease, unspecified; Z13.1 Encounter for screening for diabetes mellitus; R73.9 Hyperglycemia, unspecified | CPT/HCPCS: 80053; 80061; 83036; 84443; 85025 ==

== ENCOUNTER → 2025-04-07 13:20 | Outpatient (BNVA) | payer MEDICAID, SELFPAY ==
[2025-04-01 16:10] VITALS: BP 147/78; BMI 34.1
== END ==
PROVIDERS: PCP Family Medicine; Visit Provider Family Medicine
DX: M25.562 Pain in left knee (principal); M25.512 Pain in left shoulder; J98.4 Other disorders of lung
CPT/HCPCS: 71046; 73030; 73562